=== PATIENT | female | born 1935 | race Caucasian/White ===

== ENCOUNTER → 2018-06-19 14:24 | Outpatient (CLI) | payer MEDICARE, OTHER, SELFPAY ==
--- NOTE | 2018-06-19 14:35 | RAD_ITS ---
STUDY: X-RAY - PELVIS REASON FOR EXAM: Female, 82 years old. Rheumatoid arthritis TECHNIQUE: One view of the pelvis was obtained. COMPARISON: None. FINDINGS: There is a non-specific bowel gas pattern. Is postoperative change in the left of midline pelvis. There is degenerative change in the lumbar spine and SI joints. There is narrowing with cortical sclerosis and osteophyte formation of the sacroiliac joint consistent with degenerative osteoarthritic changes. Normal visualized bilateral superior and inferior pubic rami. There are degenerative changes of the pubic symphysis with articular narrowing and sclerosis. Normal ischial tuberosities. There is bilateral hip joint narrowing with mild bilateral acetabular protrusio. 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 Electronically Signed: Michelle Harris MD at 18:39 EDT Tel , Service support ,
[2018-06-19 16:52] LABS: Erythrocyte Sedimentation Rate 11 mm/hr (0-30)
[2018-06-19 16:54] LABS: Absolute Lymphocyte Count 1.45 X10^3/ul (0.83-4.51); Absolute Neutrophil Count 3.4 X10^3/uL (2.0-7.7); Basophil# 0.01 X10^3/uL; Basophil% 0.2 % (0-1); Eosinophil# 0.06 X10^3/uL; Eosinophils% 1.1 % (0-5); Hematocrit 41.2 % (37-47); Hemoglobin 13.4 g/dl (12.0-15.0); Lymphocyte # 1.45 X10^3/ul (4.0); Lymphocyte % 27.1 % (19-41); Mean Corp Hgb Conc 32.5 g/gl (32-36); Mean Corpuscular Hgb 31.2 pg (27.0-32.0); Mean Corpuscular Volume 95.8 fL (81-99); Mean Platelet Vol. 9.8 fl (6.2-12.0); Monocyte# 0.45 X10^3/uL; Monocyte% 8.4 % (0-10); Neutrophil # 3.36 X10^3/uL (2.7-7.7); Neutrophil % 62.8 % (47-70); Platelet Count 210 K/mm3 (150-450); RBC Distribution Width CV 13.5 % (11.6-14.6); RBC Distribution Width SD 46.4 fl (35.1-43.9); White Blood Count 5.4 K/mm3 (4.4-11.0)
[2018-06-19 16:57] LABS: POSITIVE COUNT NO; POSITIVE DIFFERENTIAL NO; POSITIVE MORPHOLOGY NO
[2018-06-19 19:14] LABS: ALB/GLOB Ratio 0.8 RATIO (0.9-2.4); AST(SGOT) 14 U/L (15-37); Alanine Aminotransfer ALT/SGPT 16 U/L (13-56); Albumin, Serum 3.4 g/dL (3.2-5.0); Alkaline Phosphatase 65 U/L (45-117); Anion Gap 8 (5-15); BUN 17 mg/dL (7-18); BUN/Creat Ratio 16.5 RATIO (10-20); Calcium,Total 9.2 mg/dL (8.5-10.1); Chloride 102 mmol/L (98-107); Creatinine, Serum 1.03 mg/dL (0.55-1.02); EST Glomerular Filtration Rate 55 mL/min (>60); Est Glom Filt Rate - Afr Amer 66 mL/min (>60); Globulin 4.4 g/dL (2.2-4.2); Glucose 97 mg/dL (74-106); Potassium 3.6 mmol/L (3.5-5.1); Protein, Total 7.8 g/dL (6.4-8.2); Sodium Level 139 mmol/L (136-145)
[2018-06-21 14:07] LABS: SJOGREN'S Anti-SS-A test < 0.2 AI (0.0-0.9); SJOGREN'S Anti-SS-B test < 0.2 AI (0.0-0.9)
[2018-06-22 08:53] LABS: ANTINUCLEAR ANTIBODIES DIRECT Negative (Negative)
[2018-06-26 12:41] LABS: CCP IgG Antibodies 7 units (0-19); HEPATITIS B SURFACE AG Negative (Negative); HLA B27 Negative (.); Hep B Surface Antibodies Non Reactive (.); Hep C Antibodies <0.1 s/co ratio (0.0-0.9)
== END ==
PROVIDERS: Visit Provider Internal Medicine Rheumatology
DX: M05.79 Rheumatoid arthritis with rheumatoid factor of multiple sites without organ or systems involvement (principal); M17.0 Bilateral primary osteoarthritis of knee
CPT/HCPCS: 36415; 72170; 80053; 81374; 85025; 85652; 86038; 86140; 86200; 86235; 86431; 86706; 86803; 87340

== ENCOUNTER → 2018-07-20 17:26 | Outpatient (CLI) | payer MEDICARE, OTHER, SELFPAY ==
[2018-07-20 17:28] LABS: Pathologist Comment May follow
[2018-07-20 18:55] LABS: AUTO B FLUID DILUENT BKGD CT WBC <0.1 RBC <0.01 (W<.1,R<.01); Appearance /Synovial Fluid Sl hazy (CLEAR); Color / Synovial Fluid Yellow (Pale Yellow); Source / Synovial Fluid RIGHT KNEE; Source- Body Fluid SYNOVIAL
[2018-07-20 18:56] LABS: RBC /Synovial Fluid 98 /mm3 (0)
[2018-07-20 18:57] LABS: Synovial Fld Mononuclear WBC # 0.154 10^3/ul; Synovial Fld Mononuclear WBC % 50.8 %; Synovial Fld Polynuclear WBC # 0.149 10^3/ul; Synovial Fld Polynuclear WBC % 49.2 %; WBC / Synovial Fluid 69 /mm3 (0)
[2018-07-20 18:58] LABS: Body Fluid QC Type(s) BF1Q,BF2Q,BF3Q
[2018-07-20 19:03] LABS: Lymph 8 %
[2018-07-20 19:05] LABS: Other Cell /Synovial Fluid 54 %
[2018-07-20 19:14] LABS: Monocyte /Synovial Fluid 38 %
[2018-07-23 14:16] LABS: Pathologist Review Reviewed
== END ==
PROVIDERS: Referring Provider Internal Medicine Rheumatology; Visit Provider Internal Medicine Rheumatology
DX: M05.79 Rheumatoid arthritis with rheumatoid factor of multiple sites without organ or systems involvement (principal); I48.0 Paroxysmal atrial fibrillation; I10 Essential (primary) hypertension; I34.1 Nonrheumatic mitral (valve) prolapse; Z85.3 Personal history of malignant neoplasm of breast
CPT/HCPCS: 87070; 87075; 87205; 89050; 89051; 89060